=== PATIENT | female | born 1980 | race Caucasian/White ===

== ENCOUNTER 2020-04-08 12:12 | Emergency (ER) | payer BC ==
[2020-04-08 13:07] LABS: #Basophils 0.1 thou/uL (0.0-0.2); #Eosinphils 0.2 thou/uL (0.0-0.7); #Lymphocytes 1.4 thou/uL (1.20-3.40); #Monocytes 0.5 thou/uL (0.11-0.59); #Neutrophils 4.8 thou/uL (1.40-6.50); %Basophils 1.3 % (0.0-1.0); %Eosinophils 3.1 % (0.0-10.0); %Lymphocytes 19.7 % (21.0-51.0); %Monocytes 7.8 % (0.0-10.0); %Neutrophils 68.2 % (42.0-75.0); Hemoglobin 13.6 g/dL (12.0-16.0); Mean Corpuscular HGB CONC 32.6 g/dL (32.0-36.0); Mean Corpuscular Hemoglobin 31.9 pg (27.0-31.0); Mean Corpuscular Volume 97.9 fL (78.0-98.0); Mean Platelet Volume 7.3 fL (7.4-10.4); Platelet Count 219 thou/uL (130-400); Red Blood Cell (RBC) Count 4.26 mill/uL (4.20-5.40)
--- NOTE | 2020-04-08 13:18 | RAD ---
PORTABLE CHEST: Date: 04/08/2020 PROVIDED CLINICAL HISTORY: Cough. FINDINGS: Cardiac and mediastinal silhouette is within normal limits. No focal consolidation, pleural fluid, or pneumothorax apparent. IMPRESSION: No evidence for acute cardiopulmonary process. POS: [facility]
[2020-04-08 13:24] LABS: ALT (SGPT) 82 U/L (8-55); AST (SGOT) 47 U/L (5-34); Albumin 4.1 g/dL (3.5-5.0); Alkaline Phosphatase 62 U/L (40-110); Anion Gap 15 mmol/L (10-20); BUN (Urea Nitrogen) 13 mg/dL (7.0-18.7); Bilirubin, Total 0.3 mg/dL (0.2-1.2); Calc. Creatinine Clearance 0 mL/min (70-130); Calcium 8.4 mg/dL (7.8-10.44); Carbon Dioxide 22 mmol/L (22-29); Chloride 106 mmol/L (98-107); Globulin 2.4 g/dL (2.4-3.5); Glucose 144 mg/dL (70-105); Potassium 3.7 mmol/L (3.5-5.1); Protein, Total 6.5 g/dL (6.0-8.3); Sodium 139 mmol/L (136-145)
== END 2020-04-08 14:05 | disposition home or self-care (01) ==
LOC: NAV ERS 12:12
DX: U07.1 COVID-19 (principal); R06.4 Hyperventilation
CPT/HCPCS: 36415; 71045; 80053; 83605; 84484; 85025; 85379; 93005